=== PATIENT | male | born 1945 | race Caucasian/White ===

== ENCOUNTER 2019-04-15 07:29 | Day surgery (SDC) | payer MEDICARE, MEDICAID ==
[~2019-04-15] VITALS: Ht 165.1 cm; Wt 88.5 kg
[~2019-04-15 07:29] MED LIST: ABILIFY5 MG PO; AMLODIPINE BESY10 MG PO; AMLODIPINE BESYL5 MG PO; ASPIR-LOW81 MG PO; ATENOLOL100 MG PO; ATENOLOL25 MG PO; ATENOLOL50 MG; ATENOLOL50 MG PO; ATORVASTATIN CA40 MG PO; COZAAR100 MG PO; COZAAR25 MG PO; HYZAAR 50-12.51 EACH PO; IBUPROFEN600 MG PO; IPRATROPIUM BRO15 ML NAS; LEVOFLOXACIN500 MG PO; MIRALAX17 GM PO; NORCO 5-325 TA1 EACH PO; POTASSIUM CHLO10 MEQ PO; PROMETHAZINE-COD5 ML PO; SIMVASTATIN10 MG PO; SPIRONOLACTONE50 MG PO; TAMSULOSIN HCL0.4 MG PO; TERAZOSIN HCL1 MG PO; TORSEMIDE10 MG PO; ZYLOPRIM100 MG PO
--- NOTE | 2019-04-15 09:41 | NUR ---
04/15/19 0954 Donnell Marshall 0997) ARRIVES AWAKE BUT SLEEPY, 0 PAIN, DIZZYNESS OR NAUSEA. REPORT GIVEN BY LIANA ULLOA
--- NOTE | 2019-04-15 14:34 | OR ---
[facility] [address] [place], [place] [address] Signed DATE OF OPERATION: 04/15/2019 SURGEON: Laurence Ford MD PREOPERATIVE DIAGNOSIS: Screening. POSTOPERATIVE DIAGNOSIS: [id number] sigmoid diverticulosis. PROCEDURE PERFORMED: Colonoscopy without biopsy. ESTIMATED BLOOD LOSS: None. INDICATIONS: Supriya is a 73-year-old gentleman, asked to see me for a followup colonoscopy. He spoke of a colonoscopy at least [address] Bernard at [facility] in [place], [place]. He said he has no lower GI complaints currently. He does have a previous cardiac history and we did track down to prior echocardiograms. His ejection fraction runs around 60-65% with some mild diastolic dysfunction. However, in that regard, he does have moderate functional status and gets around town quite independently. He said there is no family history of colon cancer or polyps. In the office, I gave him a pamphlet on colonoscopy and we looked at that together in detail. He understands the nature of the test along with the risks including, but not limited to gas, bloating, crampy abdominal pain, bleeding, perforation, requiring surgery, and missed diagnosis. We also discussed the need for IV conscious sedation. He expressed understanding and wished to proceed. DESCRIPTION OF PROCEDURE: Supriya was taken into our endoscopy suite and placed in the left lateral decubitus position. He was given a total of 3 mg of Versed and 100 mcg of fentanyl to cover the case. A digital rectal exam was performed. This was unremarkable. Prostate was not particularly concerning. The adult colonoscope was then introduced and advanced all around into the cecum under direct visualization of camera without difficulty. His prep was good. We took pictures throughout for photodocumentation. We could easily see the appendiceal orifice, the kiana's foot, and the ileocecal valve. The scope was then slowly withdrawn. He does have diverticula in the left and sigmoid colon. They were moderate in size, few to moderate in number, and scattered about. The rectum was Electronically Signed By: LAURENCE FORD MD 04/15/19 1434 PATIENT NAME: SUPRIYA L[address] ANDRE OPERATIVE REPORT DATE OF : 43 REPORT #: [id number] PHYSICIAN: LAURENCE FORD MD PCP: THANG OSBORNE REPORT IS CONFIDENTIAL AND NOT TO BE RELEASED WITHOUT AUTHORIZATION [address] [address] Signed unremarkable. Upon retroflexion of the scope, there was no additional pathology noted above the anal canal. After this, the gas was suctioned out and the colonoscope removed. Supriya tolerated the procedure quite well. RECOMMENDATIONS: Supriya can follow up in my office as needed. I suspect this will be Supriya's last colonoscopy unless something changes in the future. MD JUAN Oliva/MARIO /[id number] cc: MD Hai Hewitt MD Andrew L Bower, MD Mary Carnaghan, FNP Copies: HARPREETTINOMariyaKAREL MD, ANDREW L MD CARNAGHAN, MARY FNP ~ Electronically Signed By: LAURENCE FORD MD 04/15/19 1434 PATIENT NAME: SUPRIYA LANEN OPERATIVE REPORT DATE OF : 43 REPORT #: [id number] PHYSICIAN: LAURENCE FORD MD PCP: THANG OSBORNE REPORT IS CONFIDENTIAL AND NOT TO BE RELEASED WITHOUT AUTHORIZATION
== END 2019-04-15 10:18 | disposition home or self-care (01) ==
LOC: DS 07:29 → OPS 07:29 → DS 09:00 → OPS 10:18
PROVIDERS: Colon & Rectal Surgery
PROC: 0DJD8ZZ Inspection of Lower Intestinal Tract, Via Natural or Artificial Opening Endoscopic (ICD-10-PCS; principal; 2019-04-15 09:00)
DX: Z12.11 Encounter for screening for malignant neoplasm of colon (principal); K57.30 Diverticulosis of large intestine without perforation or abscess without bleeding; I11.0 Hypertensive heart disease with heart failure; I50.9 Heart failure, unspecified; E11.9 Type 2 diabetes mellitus without complications; Z88.8 Allergy status to other drugs, medicaments and biological substances; Z79.82 Long term (current) use of aspirin; Z79.899 Other long term (current) drug therapy
CPT/HCPCS: 99153; G0500; J2250; J3010; J7120

== ENCOUNTER 2021-04-03 10:42 | Emergency (ER) | payer MEDICARE, MEDICAID ==
[~2021-04-03] VITALS: Ht 165.1 cm; Wt 88.5 kg
[2021-04-03] MEDS ORDERED: LOSARTAN POTAS100 MG PO (10:53)
[2021-04-03] MEDS ORDERED: FUROSEMIDE20 MG PO (10:54)
[2021-04-03] MEDS ORDERED: KEFLEX750 MG PO (12:15)
--- NOTE | 2021-04-05 09:36 | EKG ---
[facility] [address] [facility] [place], [place] [address] Signed Sinus bradycardia Otherwise normal ECG No previous ECGs available Confirmed by SHAUN MURO MD ([id number]) on 04/05/2021 9:35:50 AM Electronically Signed By: SHAUN MURO MD 04/05/21 0936 PATIENT NAME: SUPRIYA LANE ANDRE Electrocardiogram DATE OF : 43 PHYSICIAN: SHAUN UMRO MD REPORT #: [id number] REPORT IS CONFIDENTIAL AND NOT TO BE RELEASED WITHOUT AUTHORIZATION
== END 2021-04-03 12:31 | disposition home or self-care (01) ==
LOC: ED 10:42
DX: R07.89 Other chest pain (principal); I10 Essential (primary) hypertension; I50.9 Heart failure, unspecified; E11.9 Type 2 diabetes mellitus without complications; I25.10 Atherosclerotic heart disease of native coronary artery without angina pectoris; Z88.8 Allergy status to other drugs, medicaments and biological substances; Z79.899 Other long term (current) drug therapy; Z79.82 Long term (current) use of aspirin
CPT/HCPCS: 71045; 80053; 83880; 84484; 85025; 93005; 93010; 99285-25

== ENCOUNTER 2021-08-04 09:26 | Emergency (ER) | payer MEDICARE, MEDICAID ==
[~2021-08-04] VITALS: Ht 165.1 cm; Wt 86.2 kg
[~2021-08-04 09:26] MED LIST changes: +FUROSEMIDE20 MG PO; +KEFLEX750 MG PO; +LOSARTAN POTAS100 MG PO
== END 2021-08-04 12:35 | disposition home or self-care (01) ==
LOC: ED 09:26
DX: J06.9 Acute upper respiratory infection, unspecified (principal); I11.0 Hypertensive heart disease with heart failure; I50.9 Heart failure, unspecified; M10.9 Gout, unspecified; I25.10 Atherosclerotic heart disease of native coronary artery without angina pectoris; Z20.822 Contact with and (suspected) exposure to COVID-19; Z85.72 Personal history of non-Hodgkin lymphomas; Z79.82 Long term (current) use of aspirin; Z88.8 Allergy status to other drugs, medicaments and biological substances
CPT/HCPCS: 99284; U0003

== ENCOUNTER 2023-08-04 16:33 | Emergency (ER) | payer MEDICARE, OTHER ==
[~2023-08-04] VITALS: Ht 165.1 cm; Wt 79.5 kg
[2023-08-04 22:50] VITALS: BP 155/52
== END 2023-08-04 22:50 | disposition home or self-care (01) ==
LOC: ED 16:33
DX: S80.01XA Contusion of right knee, initial encounter (principal); Z88.8 Allergy status to other drugs, medicaments and biological substances; Z79.899 Other long term (current) drug therapy; Z79.82 Long term (current) use of aspirin; W19.XXXA Unspecified fall, initial encounter
CPT/HCPCS: 73560; A9270

== ENCOUNTER 2024-12-12 08:19 | Emergency (ER) | payer MEDICARE, MEDICAID ==
[~2024-12-12] VITALS: Ht 165.1 cm; Wt 78.0 kg
[2024-12-12] MEDS ORDERED: FARXIGA10 MG PO (08:30)
[2024-12-12] MEDS ORDERED: CHLORTHALIDONE25 MG PO (08:30)
[2024-12-12] MEDS ORDERED: FAMOTIDINE40 MG PO (08:31)
[2024-12-12 08:41] LABS: BASOPHILS 0.6 % (0-2); EOSINOPHILS 8.1 % (0-6); HEMATOCRIT 41.6 % (35.0-50.0); HEMOGLOBIN 13.9 g/dL (12.0-18.0); LYMPHOCYTES 26.2 % (24-44); MCH 27.6 (27-36); MCHC 33.5 g/dl (30-36); MCV 82.3 fl (81-99); MONOCYTES 6.1 % (0-12); PLATELET COUNT 99 K/uL (140-440); RBC 5.05 M/ul (4.3-5.7)
[2024-12-12 09:03] LABS: ALBUMIN 3.4 g/dL (3.4-5.0); ALBUMIN/GLOBULIN RATIO 1.13 (1.1-2.4); BILIRUBIN, TOTAL 0.9 ng/dL (0.2-1.0); BUN/CREATININE RATIO 12.44 (6.0-28.6); CALCIUM 9.2 mg/dL (8.5-10.1); CREATININE, SERUM 2.25 mg/dL (0.70-1.30); MAGNESIUM 2.2 mg/dL (1.8-2.4); PROTEIN, TOTAL 6.4 g/dL (6.4-8.2)
[2024-12-12 09:50] LABS: CORONAVIRUS COVID-19 AG NEGATIVE (NEGATIVE); INFLUENZA A AG NEGATIVE (NEGATIVE); INFLUENZA B AG NEGATIVE (NEGATIVE)
[2024-12-12] MEDS ORDERED: FUROSEMIDE 100 MG/10 ML VIAL IV ONE (11:00)
[2024-12-12] MEDS ORDERED: ZITHROMAX250 MG PO (13:08)
[2024-12-12] MEDS ORDERED: LASIX40 MG PO (13:08)
[2024-12-12 13:23] VITALS: BP 165/58
--- NOTE | 2024-12-12 21:53 | EKG ---
[facility] [address] [facility] [place] [address] Signed Normal sinus rhythm Minimal voltage criteria for LVH, may be normal variant ( Sokolow-Wells ) Cannot rule out Inferior infarct , age undetermined Abnormal ECG When compared with ECG of 03-APR-2021 10:51, T wave inversion now evident in Inferior leads Confirmed by Geronimo Maldonado DO ([id number]) on 12/12/2024 9:53:07 PM Electronically Signed By: GERONIMO MALDONADO DO 12/12/24 215 PATIENT NAME: SUPRIYA L[address] ANDRE Electrocardiogram DATE OF : 43 PHYSICIAN: GERONIMO MALDONADO DO REPORT #: [id number] REPORT IS CONFIDENTIAL AND NOT TO BE RELEASED WITHOUT AUTHORIZATION
== END 2024-12-12 13:23 | disposition home or self-care (01) ==
LOC: ED 08:19
PROVIDERS: Emergency Medicine
DX: J06.9 Acute upper respiratory infection, unspecified (principal); N28.9 Disorder of kidney and ureter, unspecified; I13.0 Hypertensive heart and chronic kidney disease with heart failure and stage 1 through stage 4 chronic kidney disease, or unspecified chronic kidney disease; N18.9 Chronic kidney disease, unspecified; I50.9 Heart failure, unspecified; E87.70 Fluid overload, unspecified; E11.22 Type 2 diabetes mellitus with diabetic chronic kidney disease; I25.10 Atherosclerotic heart disease of native coronary artery without angina pectoris; Z95.1 Presence of aortocoronary bypass graft; Z88.8 Allergy status to other drugs, medicaments and biological substances; Z79.82 Long term (current) use of aspirin; Z79.899 Other long term (current) drug therapy
CPT/HCPCS: 36415; 71045; 80053; 83735; 83880; 84484; 85025; 93005; 93010; 96374; 99285-25; J1940

== ENCOUNTER 2025-02-04 10:15 | Emergency (ER) | payer MEDICARE, MEDICAID ==
[~2025-02-04] VITALS: Ht 165.1 cm; Wt 78.1 kg
[~2025-02-04 10:15] MED LIST changes: +CHLORTHALIDONE25 MG PO; +FAMOTIDINE40 MG PO; +FARXIGA10 MG PO; +LASIX40 MG PO; +ZITHROMAX250 MG PO
[2025-02-04 10:55] LABS: BASOPHILS 0.6 % (0-2); EOSINOPHILS 5.2 % (0-6); HEMATOCRIT 37.3 % (35.0-50.0); HEMOGLOBIN 12.9 g/dL (12.0-18.0); LYMPHOCYTES 26.1 % (24-44); MCH 28.2 (27-36); MCHC 34.4 g/dl (30-36); MONOCYTES 6.8 % (0-12); NEUTROPHILS 61.3 % (39-80); PLATELET COUNT 100 K/uL (140-440); RBC 4.55 M/ul (4.3-5.7); RDW 15.7 (10.5-15.0)
[2025-02-04 11:20] LABS: ALBUMIN 3.2 g/dL (3.4-5.0); ALBUMIN/GLOBULIN RATIO 1.19 (1.1-2.4); ANION GAP 13.2 (7-21); BILIRUBIN, TOTAL 1.1 mg/dL (0.2-1.0); BUN/CREATININE RATIO 14.91 (6.0-28.6); CALCIUM 8.7 mg/dL (8.5-10.1); CREATININE, SERUM 1.81 mg/dL (0.70-1.30); POTASSIUM 4.2 mmol/L (3.5-5.1); PROTEIN, TOTAL 5.9 g/dL (6.4-8.2)
[2025-02-04] MEDS ORDERED: cloNIDine HCL 0.1 MG TAB PO ONE (13:30)
[2025-02-04 13:41] VITALS: BP 159/84
--- NOTE | 2025-02-05 22:33 | EKG ---
[facility] [address] [facility] [place] [address] Signed Sinus bradycardia Minimal voltage criteria for LVH, may be normal variant ( Sokolow-Wells ) Borderline ECG When compared with ECG of 12-DEC-2024 09:04, Minimal criteria for Inferior infarct are no longer present T wave inversion no longer evident in Inferior leads Confirmed by Maxi Puentes MD () on 02/05/2025 10:33:07 PM Electronically Signed By: MAXI PUENTES MD 02/05/252232 PATIENT NAME: SUPRIYA LANE ANDRE Electrocardiogram DATE OF : 43 PHYSICIAN: MAXI PUENTES MD REPORT #: [id number] REPORT IS CONFIDENTIAL AND NOT TO BE RELEASED WITHOUT AUTHORIZATION
== END 2025-02-04 13:42 | disposition home or self-care (01) ==
LOC: ED 10:15
PROVIDERS: Emergency Medicine
DX: I16.0 Hypertensive urgency (principal); I13.0 Hypertensive heart and chronic kidney disease with heart failure and stage 1 through stage 4 chronic kidney disease, or unspecified chronic kidney disease; N18.9 Chronic kidney disease, unspecified; I50.9 Heart failure, unspecified; E11.22 Type 2 diabetes mellitus with diabetic chronic kidney disease; Z79.82 Long term (current) use of aspirin; Z88.8 Allergy status to other drugs, medicaments and biological substances
CPT/HCPCS: 36415; 71045; 80053; 83735; 83880; 84484; 85025; 93005; 93010; 94799; 99285-25